=== PATIENT | female | born 1955 | race Caucasian/White ===

== ENCOUNTER 2017-11-12 15:41 | Emergency (ER) | payer OTHER, BC ==
[2017-11-12] MEDS: PERCOCET 5MG/325MG TAB PO (17:45)
[2017-11-12] MEDS: IBUPROFEN 600 MG TAB PO (19:20)
[2017-11-12] MEDS: traMADol 50 MG TAB PO (19:25)
== END 2017-11-12 19:30 | disposition home or self-care (01) ==
LOC: M ED 15:41
DX: S53.21XA Traumatic rupture of right radial collateral ligament, initial encounter (principal); S63.104A Unspecified dislocation of right thumb, initial encounter; W19.XXXA Unspecified fall, initial encounter; Y92.39 Other specified sports and athletic area as the place of occurrence of the external cause; Y93.9 Activity, unspecified; Z79.899 Other long term (current) drug therapy
CPT/HCPCS: 73110